=== PATIENT | female | born 1965 | race Caucasian/White ===

== ENCOUNTER 2016-07-23 20:45 | Emergency (ER) | payer OTHER ==
[2016-07-23 22:09] VITALS: BMI 37.5
--- NOTE | 2016-07-23 22:55 | PDOC ---
[id number] 4d LOWER LEFT BACK PAIN Time Seen by Provider: 07/23/16 22:48 History Source: Patient - History of Present Illness Initial Comments: 07/24/16 00:25 50 year old female with left sided back pain that is worse with movement, cough. denies fever.chills NVD, urinary symptoms. history depression, htn, Past History - Past Medical History Allergies/Adverse Reactions: Allergies Allergy/AdvReac Type Severity Reaction Status Date / Time No Known Allergies Allergy Verified 07/23/16 22:07 Home Medications: Ambulatory Orders Calcium Carbonate/Vitamin D3 [Calcium 600-Vit D3 200 Tablet] 1 each PO BID 07/18 Rivaroxaban [Xarelto -] 20 mg PO DAILY 12/12/14 Cyclobenzaprine HCl [Flexeril] 10 mg PO BID PRN 06/22/15 Duloxetine HCl [Cymbalta] 30 mg PO DAILY 06/22/15 Topiramate [Topamax] 50 mg PO BID 06/22/15 Venlafaxine HCl ER [Effexor Xr -] 150 mg PO DAILY 06/22/15 Mirtazapine 15 mg PO HS 11/18/15 Omeprazole [Prilosec] 40 mg PO DAILY 11/18/15 Simvastatin 10 mg PO HS 11/18/15 Sumatriptan 20 mg NS PRN 11/18/15 Diphenhydramine HCl [Benadryl Capsule -] 25 mg PO TID #30 capsule 04/08/16 Ondansetron [Zofran Odt -] 4 mg SL TID #30 od.tablet 04/08/16 Prednisone [Deltasone -] 40 mg PO DAILY #14 tablet 04/08/16 Diazepam [Valium] 5 mg PO Q8H PRN #6 tablet MDD 3 07/24/16 Hydrocortisone [Preparation H] 1 applic TP QID PRN #1 tube 07/26/16 Anemia: No Asthma: No Cancer: No Cardiac Disorders: No CVA: No COPD: No CHF: No (irregular hr) DVT: Yes Dementia: No Diabetes: No GI Disorders: No Disorders: Yes (incontinence) HTN: Yes Hypercholesterolemia: Yes Liver Disease: Yes (fatty liver) Psychiatric Problems: Yes (depression, anxiety) Suicide Attempt (Hx): No Seizures: No Thyroid Disease: No Lung CA: (sleep apnea) - Surgical History Abdominal Surgery: Yes Appendectomy: No Cardiac Surgery: No Cholecystectomy: Yes Lung Surgery: No Neurologic Surgery: No Orthopedic Surgery: Yes (left carpal tunnel) - Immunization History TDAP Vaccination: No Immunization Up to Date: Yes - Psycho/Social/Smoking Cessation Hx Anxiety: No Suicidal Ideation: No Smoking Status: Yes Smoking History: Never smoked Have you smoked in the past 12 months: No Number of Cigarettes Smoked Daily: 5 If you are a former smoker, when did you quit?: y Information on smoking cessation initiated: No 'Breaking Loose' booklet given: 09/18/15 Hx Alcohol Use: No Drug/Substance Use Hx: No Substance Use Type: None Hx Substance Use Treatment: No *Physical Exam - Vital Signs Last Vital Signs Temp Pulse Resp BP Pulse Ox 97.9 F 79 14 129/81 95 07/23/16 22:07 07/23/16 22:07 07/23/16 22:07 07/23/16 22:07 07/23/16 22:07 - Physical Exam General Appearance: Yes: Appropriately Dressed HEENT: positive: Normal ENT Inspection Respiratory/Chest: positive: Lungs Clear, Normal Breath Sounds, Other ( posterior chest tenderness to palpation) Cardiovascular: positive: Regular Rhythm, Regular Rate Gastrointestinal/Abdominal: positive: Normal Bowel Sounds, Soft Extremity: positive: Normal Capillary Refill Integumentary: positive: Normal Color, Dry, Warm Neurologic: positive: lap polisher II-XII NML intact, Fully Oriented, Alert, Normal Mood/ Affect ED Treatment Course - RADIOLOGY Chest X-Ray Result: No Infiltrates (official read pending) Medical Decision Making - Medical Decision Making 08/04/16 06:37 A: muscle spasms P: valium pain control pmd outpatient follow up. 08/04/16 06:38 *DC/Admit/Observation/Transfer Diagnosis at time of Disposition: Muscle spasm of back - Discharge Dispostion Disposition: HOME - Prescriptions Prescriptions: Diazepam [Valium] 5 mg PO Q8H PRN #6 tablet MDD 3 PRN Reason: Back Pain - Referrals Referrals: Catalina Alaniz [Primary Care Provider] - - Patient Instructions Printed Discharge Instructions: Muscle Strain Additional Instructions: continue light stretches as tolerated. take valium as needed for spasms. do not drive or operate heavy machinery while on the medication. follow up with your doctor as soon as possible.
[2016-07-24 00:28] LABS: URINE APPEARANCE CLEAR; URINE BILIRUBIN NEGATIVE (NEGATIVE); URINE BLOOD NEGATIVE (NEGATIVE); URINE COLOR YELLOW; URINE GLUCOSE (UA) NEGATIVE (NEGATIVE); URINE KETONE NEGATIVE (NEGATIVE); URINE LEUK ESTERASE NEGATIVE (NEGATIVE); URINE NITRITE NEGATIVE (NEGATIVE); URINE PROTEIN NEGATIVE (NEGATIVE); URINE UROBILINOGEN NEGATIVE E.U./dl (0.2-1.0)
[2016-07-24] MEDS ORDERED: diazePAM 5 MG TABLET ONE (01:39)
[2016-07-24] MEDS: diazePAM 5 MG TABLET PO ONE (01:41)
--- NOTE | 2016-07-24 01:46 | PDOC ---
*Physical Exam - Vital Signs Last Vital Signs Temp Pulse Resp BP Pulse Ox 97.9 F 79 14 129/81 95 07/23/16 22:07 07/23/16 22:07 07/23/16 22:07 07/23/16 22:07 07/23/16 22:07 ED Treatment Course - ADDITIONAL ORDERS Additional order review: Laboratory Results 07/24/16 07/24/16 00:15 00:15 Urine Color Yellow Urine Appearance Clear Urine pH 5.0 D Ur Specific [place] 1.028 Urine Protein Negative Urine Glucose (UA) Negative Urine Ketones Negative Urine Blood Negative Urine Nitrite Negative Urine Bilirubin Negative Urine Urobilinogen Negative Ur Leukocyte Esterase Negative Urine HCG, Qual Negative - Medications Given in the ED: ED Medications Discontinued Medications Generic Name Dose Route Start Last Admin Trade Name Jane PRN Reason Stop Dose Admin Diazepam 10 mg 07/24/16 01:01 07/24/16 01:41 Valium - PO 07/24/16 01:02 10 mg ONCE ONE Administration Medical Decision Making - Medical Decision Making 07/24/16 01:46 agree with care from GENE Baez *DC/Admit/Observation/Transfer Diagnosis at time of Disposition: Muscle spasm of back - Discharge Dispostion Disposition: HOME - Prescriptions Prescriptions: Diazepam [Valium] 5 mg PO Q8H PRN #6 tablet MDD 3 PRN Reason: Back Pain - Referrals Referrals: Catalina Alaniz [Primary Care Provider] - - Patient Instructions Printed Discharge Instructions: Muscle Strain Additional Instructions: continue light stretches as tolerated. take valium as needed for spasms. do not drive or operate heavy machinery while on the medication. follow up with your doctor as soon as possible.
[2016-07-24] MEDS ORDERED: KETOROLAC TROMETHAMINE 60 MG/2 ML VIAL ONE (03:30)
[2016-07-24] MEDS: KETOROLAC TROMETHAMINE 30 MG/1 ML VIAL IM ONE (03:38)
[2016-07-24 04:20] VITALS: BP 125/86; PULSE 61; TEMP 97.7
== END 2016-07-24 04:20 | disposition home or self-care (01) ==
LOC: JER 20:45
PROC: 3E0233Z Introduction of Anti-inflammatory into Muscle, Percutaneous Approach (ICD-10-PCS; principal; 2016-07-23)
DX: M62.830 Muscle spasm of back (principal); E78.00 Pure hypercholesterolemia, unspecified; F41.8 Other specified anxiety disorders; K76.0 Fatty (change of) liver, not elsewhere classified; G47.30 Sleep apnea, unspecified
CPT/HCPCS: 71020-TC; 81003; 84703; 99282-25

== ENCOUNTER 2016-07-26 15:01 | Emergency (ER) | payer OTHER ==
[2016-07-26 15:24] VITALS: BP 118/77; PULSE 94; TEMP 98.6; BMI 36.8
[2016-07-26] MEDS ORDERED: KETOROLAC TROMETHAMINE 60 MG/2 ML VIAL IM ONE (16:05)
[2016-07-26] MEDS ORDERED: KETOROLAC TROMETHAMINE 30 MG/1 ML VIAL IM ONE (16:06)
[2016-07-26] MEDS ORDERED: KETOROLAC TROMETHAMINE 30 MG/1 ML VIAL ONE (16:07)
--- NOTE | 2016-07-26 16:12 | PDOC ---
[id number] MUSCLE SPASM Time Seen by Provider: 07/26/16 15:38 - History of Present Illness Initial Comments: 07/26/16 16:07 CHIEF COMPLAINT: left lower back pain HISTORY OF PRESENT ILLNESS: 50 yo F with hx of depression, anxiety, HLD, sciatica, lower back muscle spasms, returns to fast track with left lower back pain. Patient states she was prescribed 6 pills of valium "which made me feel better, but I ran out." No recent travel or sick contacts. PAST MEDICAL HISTORY: Denies past medical history FAMILY HISTORY: Denies SOCIAL HISTORY:Denies tobacco, alcohol, illicit drug use. SURGICAL HISTORY: Denies ALLERGIES: No known drug allergies REVIEW OF SYSTEMS General/Constitutional: Denies fever or chills. Denies weakness, weight change. HEENT: Denies change in vision. Denies ear pain or discharge. Denies sore throat. Cardiovascular: Denies chest pain or shortness of breath. Respiratory: Denies cough, wheezing, or hemoptysis. Gastrointestinal: Denies nausea, vomiting, diarrhea or constipation. Denies rectal bleeding. Genitourinary: Denies dysuria, frequency, or change in urination. Musculoskeletal: Chronic back pain. PHYSICAL EXAM General Appearance: Well-appearing, appropriately dressed. No apparent distress , no intoxication. HEENT: EOMI, PERRLA, normal ENT inspection, normal voice, TMs normal, pharynx normal. No conjunctival pallor. No photophobia, scleral icterus. Respiratory/Chest: Lungs CTAB. Cardiovascular: RRR. S1, S2. Musculoskeletal/Extremities: Normal inspection. FROM of all extremities, normal capillary refill. Pelvis Stable. No CVA tenderness. No tenderness to extremities, pedal edema, swelling, erythema or deformity. Integumentary: Appropriate color, dry, warm. No cyanosis, erythema, jaundice or rash Neurologic: foot press operator II-XII intact. Fully oriented, alert. Appropriate mood/affect. Motor strength 5/5. No appreciable EOM palsy, facial droop or sensory deficit. 08/13/16 14:49 Past History - Past Medical History Allergies/Adverse Reactions: Allergies Allergy/AdvReac Type Severity Reaction Status Date / Time No Known Allergies Allergy Verified 07/26/16 15:24 Home Medications: Ambulatory Orders Naproxen [Naprosyn -] 500 mg PO BID PRN #14 tablet 08/12/16 Ondansetron [Zofran *Odt*] 8 mg SL TID PRN #6 od.tablet 08/12/16 Anemia: No Asthma: No Cancer: No Cardiac Disorders: No CVA: No COPD: No CHF: No (irregular hr) DVT: Yes Dementia: No Diabetes: No GI Disorders: No Disorders: Yes (incontinence) HTN: Yes (no meds) Hypercholesterolemia: Yes Liver Disease: Yes (fatty liver) Psychiatric Problems: Yes (depression, anxiety) Suicide Attempt (Hx): No Seizures: No Thyroid Disease: No Lung CA: (sleep apnea) - Surgical History Abdominal Surgery: Yes Appendectomy: No Cardiac Surgery: No Cholecystectomy: Yes Lung Surgery: No Neurologic Surgery: No Orthopedic Surgery: Yes (left carpal tunnel) - Immunization History TDAP Vaccination: No Immunization Up to Date: Yes - Psycho/Social/Smoking Cessation Hx Anxiety: Yes Suicidal Ideation: No Smoking Status: Yes Smoking History: Never smoked Have you smoked in the past 12 months: No Number of Cigarettes Smoked Daily: 5 If you are a former smoker, when did you quit?: y 'Breaking Loose' booklet given: 09/18/15 Hx Alcohol Use: No Drug/Substance Use Hx: No Substance Use Type: None Hx Substance Use Treatment: No Trauma Specific PMHX - Complaint Specific PMHX Back Injury: Yes (weight lifting injury years ago) *Physical Exam - Vital Signs Last Vital Signs Temp Pulse Resp BP Pulse Ox 98.6 F 94 H 20 118/77 98 07/26/16 15:19 07/26/16 15:19 07/26/16 15:19 07/26/16 15:19 07/26/16 15:19 Medical Decision Making - Medical Decision Making 07/26/16 16:12 50 yo F with hx of depression, anxiety, HLD, sciatica, lower back muscle spasms , returns to fast track with left lower back pain. [place] [employer] referenced: Rx Written Rx Dispensed Drug Quantity Days Supply Prescriber Name 07/24/2016 07/24/2016 diazepam 5 mg tablet 6 2 Adali Baez 07/13/2016 07/13/2016 morphine sulf er 30 mg tablet 60 30 Lorri Sanchez [employer]ARD[employer] HELPER Will not prescribe narcotics as patient was just rxed 60 tabs of morphine sulfate 13 days ago. -30 mg IM Toradol Advised patient to take medication as prescribed and follow up with pain management and orthopedics; patient states she has appointment to see ortho as she is awaiting knee replacement. Patient states she will follow up with pain management. *DC/Admit/Observation/Transfer Diagnosis at time of Disposition: Muscle spasm of back Hemorrhoid Qualifiers: Hemorrhoid type: second degree Qualified Code(s): K64.1 - Second degree hemorrhoids - Discharge Dispostion Disposition: HOME Condition at time of disposition: Stable Admit: No - Referrals Referrals: Catalina Alaniz [Primary Care Provider] - Lucian Mooney MD [Non Staff, Medical] - - Patient Instructions Printed Discharge Instructions: DI for Low Back Pain, DI for Back Spasm Additional Instructions: As discussed, you must follow up with orthopedics and/or pain management for further evaluation of your back pain. You may need a follow up MRI to evaluate your spine. If you experience any loss of sensation, numbness, or tingling to your legs; loss of bowel or bladder function; difficulty walking; fever, nausea , vomiting, diarrhea, or any new or worsening symptoms, please return to the ER.
== END 2016-07-26 16:55 | disposition home or self-care (01) ==
LOC: JERFT 15:01
PROC: 3E0333Z Introduction of Anti-inflammatory into Peripheral Vein, Percutaneous Approach (ICD-10-PCS; principal; 2016-07-26)
DX: M62.830 Muscle spasm of back (principal); K64.1 Second degree hemorrhoids; F32.9 Major depressive disorder, single episode, unspecified; F41.9 Anxiety disorder, unspecified; E78.5 Hyperlipidemia, unspecified; M54.30 Sciatica, unspecified side; K76.0 Fatty (change of) liver, not elsewhere classified; Z86.718 Personal history of other venous thrombosis and embolism
CPT/HCPCS: 99281-25

== ENCOUNTER 2016-08-12 10:51 | Emergency (ER) | payer OTHER ==
[2016-08-12 11:14] VITALS: BP 138/119; PULSE 100; TEMP 98; BMI 36.0
--- NOTE | 2016-08-12 11:40 | PDOC ---
[id number]: HEADACHES, NAUSEA Time Seen by Provider: 08/12/16 11:27 History Source: Patient Exam Limitations: No Limitations - History of Present Illness Initial Comments: 08/12/16 11:56 50 yr female history of migraines, anxiety, depression, DVT, presents wtih 3 days headache and photophobia with nausea no vomiting. Pt states topamax does not help her so she did not take any. no fever no chills. Past History - Past Medical History Allergies/Adverse Reactions: Allergies Allergy/AdvReac Type Severity Reaction Status Date / Time No Known Allergies Allergy Verified 08/12/16 11:12 Home Medications: Ambulatory Orders Naproxen [Naprosyn -] 500 mg PO BID PRN #14 tablet 08/12/16 Ondansetron [Zofran *Odt*] 8 mg SL TID PRN #6 od.tablet 08/12/16 Anemia: No Asthma: No Cancer: No Cardiac Disorders: No CVA: No COPD: No CHF: No (irregular hr) DVT: Yes Dementia: No Diabetes: No GI Disorders: No Disorders: Yes (incontinence) HTN: Yes (no meds) Hypercholesterolemia: Yes Liver Disease: Yes (fatty liver) Psychiatric Problems: Yes (depression, anxiety) Suicide Attempt (Hx): No Seizures: No Thyroid Disease: No Lung CA: (sleep apnea) Other medical history: MIGRANES - Surgical History Abdominal Surgery: Yes Appendectomy: No Cardiac Surgery: No Cholecystectomy: Yes Lung Surgery: No Neurologic Surgery: No Orthopedic Surgery: Yes (left carpal tunnel) - Immunization History TDAP Vaccination: No Immunization Up to Date: Yes - Psycho/Social/Smoking Cessation Hx Anxiety: Yes Suicidal Ideation: No Smoking Status: Yes Smoking History: Current every day smoker Have you smoked in the past 12 months: Yes Number of Cigarettes Smoked Daily: 3 If you are a former smoker, when did you quit?: y Information on smoking cessation initiated: No 'Breaking Loose' booklet given: 09/18/15 Hx Alcohol Use: No Drug/Substance Use Hx: No Substance Use Type: None Hx Substance Use Treatment: No Neuro Specific PMHX - Complaint Specific PMHX Migraine: Yes *Physical Exam - Vital Signs Last Vital Signs Temp Pulse Resp BP Pulse Ox 98 F 100 H 19 138/119 98 08/12/16 11:12 08/12/16 11:12 08/12/16 11:12 08/12/16 11:12 08/12/16 11:12 - Physical Exam General Appearance: Yes: Nourished, Appropriately Dressed HEENT: positive: EOMI, EVEL[place], Normal ENT Inspection, TMs Normal, Pharynx Normal Neck: positive: Supple. negative: Tender Respiratory/Chest: positive: Lungs Clear, Normal Breath Sounds Cardiovascular: positive: Regular Rhythm, Regular Rate Gastrointestinal/Abdominal: positive: Normal Bowel Sounds, Soft Musculoskeletal: positive: Normal Inspection Extremity: positive: Normal Capillary Refill, Normal Inspection, Normal Range of Motion Integumentary: positive: Normal Color, Dry, Warm Neurologic: positive: Fully Oriented, Alert, Normal Mood/Affect, Normal Response , Motor Strength 5/5, Other (no dizzyness no vision changes) Progress Note - Progress Note Progress Note: pt improved after sleeping about 1 hr in ER pt states she feels better ad is ready to go home. Medical Decision Making - Medical Decision Making 08/12/16 12:40 cc: nausea headache photophobia, no acute distress history of migraines states this is typical migraine no fever no head trauma will give zofran, toradol pt has history of opioid overdose (EMR checked) strict follow up with neurology 08/12/16 13:16 BP 140/87 left arm *DC/Admit/Observation/Transfer Diagnosis at time of Disposition: Migraine Qualifiers: Migraine type: unspecified Status migrainosus presence: without status migrainosus Intractability: intractable Qualified Code(s): G43.919 - Migraine, unspecified, intractable, without status migrainosus - Discharge Dispostion Disposition: HOME Condition at time of disposition: Good - Prescriptions Prescriptions: Naproxen [Naprosyn -] 500 mg PO BID PRN #14 tablet PRN Reason: Headache Ondansetron [Zofran *Odt*] 8 mg SL TID PRN #6 od.tablet PRN Reason: Nausea And/Or Vomiting - Referrals Referrals: Mohit Robertson MD [Staff Physician] - - Patient Instructions Additional Instructions: follow with the neurologist for follow up take naproysn every 12hrs for headache , take at the early sign of headache you can also take Excedrin Migraine as directed drink at least 2 liters of water return if any worsening symptoms
[2016-08-12] MEDS ORDERED: ONDANSETRON *ODT* 4 MG TABLET SL ONE (11:55)
[2016-08-12] MEDS ORDERED: ONDANSETRON *ODT* 4 MG TABLET ONE (11:59)
[2016-08-12] MEDS ORDERED: KETOROLAC TROMETHAMINE 60 MG/2 ML VIAL IM ONE (12:27)
[2016-08-12] MEDS ORDERED: KETOROLAC TROMETHAMINE 60 MG/2 ML VIAL ONE (12:46)
== END 2016-08-12 14:05 | disposition home or self-care (01) ==
LOC: JERFT 10:51
PROC: 3E0233Z Introduction of Anti-inflammatory into Muscle, Percutaneous Approach (ICD-10-PCS; principal; 2016-08-12)
DX: G43.919 Migraine, unspecified, intractable, without status migrainosus (principal); F41.8 Other specified anxiety disorders; Z86.718 Personal history of other venous thrombosis and embolism; I10 Essential (primary) hypertension; E78.00 Pure hypercholesterolemia, unspecified; F17.210 Nicotine dependence, cigarettes, uncomplicated; K76.0 Fatty (change of) liver, not elsewhere classified
CPT/HCPCS: 84703; 96372; 99281-25

== ENCOUNTER → 2016-08-24 | Emergency (ER) | payer OTHER ==
[~2016-08-24] MED LIST: ACETAMINOPHEN/CAFFEINE/BUTALBITAL 1 TAB ONE; ACETAMINOPHEN/CAFFEINE/BUTALBITAL 1 TAB PO ONE; IBUPROFEN 400 MG TABLET (FP) PO ONE; METOCLOPRAMIDE HCL 10 MG TABLET (FP) PO ONE; diphenhydrAMINE HCL 25 MG CAPSULE (FP) PO ONE; predniSONE 20 MG TABLET (UD) ONE
[2016-08-24 22:32] VITALS: BMI 36.0
--- NOTE | 2016-08-25 01:26 | PDOC ---
History of Present Illness - General History Source: Patient Exam Limitations: No Limitations - History of Present Illness Initial Comments: 08/25/16 01:31 The patient is a 50 year old female with significant past medical history of hypertension, hyperlipidemia, DARRON, anemia, recurrent DVT's (on Xarelto), opiate overdose, depression, bipolar disorder, and multiple suicide attempts who presents to the ED for 3 days of migraine. Patient describes her migraine as a throbbing and pounding sensation and 9/10 with associated bilateral eye pain, photophobia, and nausea. Denies dizziness or vomiting. States taking imitrex 25 mg 2 days ago and yesterday with no improvement and as well as excedrin with no improvement. The patient denies fever, chills, cough, SOB, chest pain, abdominal pain, and diarrhea. Allergies: NKDA Social History: 1/2 PPD. Denies alcohol or drug use. Family History: Father has DM. Colon and pancreatic cancer on her father's side Past Surgical History: Cholecystectomy, left carpal tunnel repair PCP: Dr. Vanda Alaniz <Lauren Lozada - Last Filed: 08/25/16 01:31> - General History Source: Patient <Ambrose Rutledge - Last Filed: 08/25/16 06:09> - General Chief Complaint: Migraine Headache Stated Complaint: HEADACHE Time Seen by Provider: 08/25/16 01:09 Past History <Lauren Lozada - Last Filed: 08/25/16 01:31> - Past Medical History Anemia: No Asthma: No Cancer: No Cardiac Disorders: No CVA: No COPD: No CHF: No (irregular hr) DVT: Yes Dementia: No Diabetes: No GI Disorders: No Disorders: Yes (incontinence) HTN: Yes (no meds) Hypercholesterolemia: Yes Liver Disease: Yes (fatty liver) Psychiatric Problems: Yes (depression, anxiety) Suicide Attempt (Hx): No Seizures: No Thyroid Disease: No Lung CA: (sleep apnea) - Surgical History Abdominal Surgery: Yes Appendectomy: No Cardiac Surgery: No Cholecystectomy: Yes Lung Surgery: No Neurologic Surgery: No Orthopedic Surgery: Yes (left carpal tunnel) - Immunization History TDAP Vaccination: No Immunization Up to Date: Yes - Psycho/Social/Smoking Cessation Hx Anxiety: Yes Suicidal Ideation: No Smoking Status: Yes Smoking History: Current some day smoker Have you smoked in the past 12 months: Yes Number of Cigarettes Smoked Daily: 3 If you are a former smoker, when did you quit?: y Information on smoking cessation initiated: No 'Breaking Loose' booklet given: 09/18/15 Hx Alcohol Use: No Drug/Substance Use Hx: No Substance Use Type: None Hx Substance Use Treatment: No <Ambrose Rutledge - Last Filed: 08/25/16 06:09> - Past Medical History Allergies/Adverse Reactions: Allergies Allergy/AdvReac Type Severity Reaction Status Date / Time No Known Allergies Allergy Verified 08/12/16 11:12 Home Medications: Ambulatory Orders Sumatriptan Succinate [Imitrex] 25 mg PO BID PRN 08/24/16 Acetaminophen/Caffeine/Butalb [Fioricet -] 1 tab PO Q6H #28 tablet MDD 4 Ibuprofen 800 mg PO TID #30 tablet 08/25/16 Metoclopramide HCl [Reglan -] 10 mg PO TID #30 tablet 08/25/16 Review of Systems - Review of Systems Able to Perform ROS?: Yes Comments:: 08/25/16 01:31 CONSTITUTIONAL: Absent: fever, no chills, no fatigue EYES: +bilateral eye pain Absent: visual changes ENT: Absent: ear pain, no sore throat CARDIOVASCULAR: Absent: chest pain, no palpitations RESPIRATORY: Absent: cough, no SOB GI: +nausea Absent: abdominal pain, no vomiting, no constipation, no diarrhea GENITOURINARY: Absent: dysuria, no frequency, no hematuria MUSCULOSKELETAL: Absent: back pain, no arthralgia, no myalgia SKIN: Absent: rash NEURO: +migraine headache, photophobia <Lauren Lozada - Last Filed: 08/25/16 01:31> *Physical Exam - Vital Signs Last Vital Signs Temp Pulse Resp BP Pulse Ox 98.5 F 83 18 154/107 98 08/24/16 22:29 08/24/16 22:29 08/24/16 22:29 08/24/16 22:29 08/24/16 22:29 - Physical Exam Comments: 08/25/16 01:31 GENERAL: Well-appearing, well-nourished. No apparent distress. HEENT: Normocephalic, atraumatic. PERRL, EOM intact. CARDIOVASCULAR: Normal S1, S2. Regular rate and rhythm. PULMONARY: Clear to auscultation bilaterally. ABDOMEN: Soft, non-distended, non-tender. EXTREMITIES: Normal ROM in all four extremities. No gross deformities. SKIN: Warm, dry. No rash NEUROLOGICAL: No focal neurological deficits. <Lauren Lozada - Last Filed: 08/25/16 01:31> - Vital Signs Last Vital Signs Temp Pulse Resp BP Pulse Ox 98.5 F 83 18 154/107 98 08/24/16 22:29 08/24/16 22:29 08/24/16 22:29 08/24/16 22:29 08/24/16 22:29 <Ambrose Rutledge - Last Filed: 08/25/16 06:09> Medical Decision Making - Medical Decision Making 08/25/16 06:08 Dr. Rutledge: The scribe's documentation has been prepared under my direction and personally reviewed by me in its entirery. I confirm that the note above accurately reflects all work, treatment, procedures, and medical decision making performed by me. Pt headache has improved with treatment in the department. Neurologically intact. Pt to be discharged <Ambrose Rutledge - Last Filed: 08/25/16 06:09> *DC/Admit/Observation/Transfer - Attestations Scribe Attestion: 08/25/16 01:31 Documentation prepared by Lauren Lozada, acting as pediatrician/medical doctor for Ambrose Rutledge MD/. <Lauren Lozada - Last Filed: 08/25/16 01:31> - Discharge Dispostion Admit: No <Ambrose Rutledge - Last Filed: 08/25/16 06:09> Diagnosis at time of Disposition: Migraine Qualifiers: Migraine type: unspecified Status migrainosus presence: without status migrainosus Intractability: not intractable Qualified Code(s): G43.909 - Migraine, unspecified, not intractable, without status migrainosus - Discharge Dispostion Disposition: HOME Condition at time of disposition: Improved - Referrals Referrals: Dar Arana [Primary Care Provider] - Antelmo Wade MD [Staff Physician] - - Patient Instructions Printed Discharge Instructions: DI for Migraine
[2016-08-25 06:40] VITALS: BP 153/100; PULSE 62; TEMP 98.3
== END | disposition home or self-care (01) ==
LOC: JER 22:22
DX: G43.909 Migraine, unspecified, not intractable, without status migrainosus (principal); I10 Essential (primary) hypertension; E78.5 Hyperlipidemia, unspecified; D64.9 Anemia, unspecified; G47.33 Obstructive sleep apnea (adult) (pediatric); F17.210 Nicotine dependence, cigarettes, uncomplicated; F31.9 Bipolar disorder, unspecified; Z86.718 Personal history of other venous thrombosis and embolism; Z79.01 Long term (current) use of anticoagulants
CPT/HCPCS: 99281-25

== ENCOUNTER 2016-09-06 17:19 | Emergency (ER) | payer OTHER ==
[2016-09-06] MEDS ORDERED: diphenhydrAMINE HCL 25 MG CAPSULE (FP) PO ONE (17:45)
[2016-09-06] MEDS ORDERED: predniSONE 20 MG TABLET (UD) PO ONE (17:45)
--- NOTE | 2016-09-06 17:56 | PDOC ---
History of Present Illness - General Chief Complaint: Allergic Reaction Stated Complaint: ITCHING ALL OVER Time Seen by Provider: 09/06/16 17:34 History Source: Patient Exam Limitations: No Limitations - History of Present Illness Initial Comments: 09/06/16 17:45 Patient is a 50-year-old female with history of hypertension, left lower extremity DVT, patient reports that she was taking a shower after taking the shower developed generalized pruritus with no rash denies any new lotion soaps or detergents. Allergies: No known allergies Medications: Chlorozoxazone, cymbalta, effexor, omeprazol, simvistatin, topamax. Family History: Non-contributory Social History: Denies smoking, alcohol use, or IVDU Review of Systems GENERAL/CONSTITUTIONAL: No fever or chills. No weakness. No weight change. HEAD, EYES, EARS, NOSE AND THROAT: No change in vision. No ear pain or discharge. No sore throat. CARDIOVASCULAR: No chest pain or shortness of breath. RESPIRATORY: No cough, wheezing, or hemoptysis. GASTROINTESTINAL: No nausea, vomiting, diarrhea or constipation. No rectal bleeding. GENITOURINARY: No dysuria, frequency, or change in urination. MUSCULOSKELETAL: No joint or muscle swelling or pain. No neck or back pain. SKIN : No rash or easy bruising. Generalized pruritis. NEUROLOGIC: No headache, vertigo, loss of consciousness, or loss of sensation. PSYCHIATRIC: No depression or anxiety. ENDOCRINE: No increased thirst. No abnormal weight change. HEMATOLOGIC/LYMPHATIC: No anemia, easy bleeding, or history of blood clots. ALLERGIC/IMMUNOLOGIC: No hives or skin allergy. No latex allergy. Physical Exam: GENERAL: The patient is awake, alert, and fully oriented, in no acute distress. HEAD: Normal with no signs of trauma. EYES: Pupils equal, round and reactive to light, extraocular movements intact, sclera anicteric, conjunctiva clear. ENT: Ears normal, nares patent, oropharynx clear without exudates. Moist mucous membranes. No uvula deviation NECK: Normal range of motion, supple without lymphadenopathy, JVD, or masses. LUNGS: Breath sounds equal, clear to auscultation bilaterally. No wheezes, and no crackles. HEART: Regular rate and rhythm, normal S1 and S2 without murmur, rub or gallop. ABDOMEN: Soft, nontender, normoactive bowel sounds. No guarding, no rebound. No masses. No bruising or abrasions MUSCULOSKELETAL: Normal range of motion, no edema. No clubbing or cyanosis. No cords, erythema, or tenderness. No CVA Tenderness with fist palpation. NEUROLOGICAL: Cranial nerves II through XII grossly intact. Normal speech, normal gait. PSYCH: Normal mood, normal affect. SKIN: Warm, Dry, normal turgor, no rashes or lesions noted. 09/06/16 19:30 Past History - Past Medical History Allergies/Adverse Reactions: Allergies Allergy/AdvReac Type Severity Reaction Status Date / Time No Known Allergies Allergy Verified 09/06/16 17:23 Home Medications: Ambulatory Orders Chlorzoxazone 500 mg PO BID 09/06/16 Diphenhydramine [Benadryl -] 50 mg PO TID #15 capsule 09/06/16 Duloxetine HCl [Cymbalta] 20 mg PO DAILY 09/06/16 Morphine Sulfate [Morphine Sulfate ER] 30 mg PO BID 09/06/16 Omeprazole 40 mg PO DAILY 09/06/16 Prednisone [Deltasone -] 20 mg PO BID #6 tablet 09/06/16 Simvastatin 20 mg PO HS 09/06/16 Topiramate [Topamax] 100 mg PO BID 09/06/16 Venlafaxine HCl ER [Effexor Xr -] 75 mg PO DAILY 09/06/16 Anemia: No Asthma: No Cancer: No Cardiac Disorders: No CVA: No COPD: No CHF: No (irregular hr) DVT: Yes Dementia: No Diabetes: No GI Disorders: No Disorders: Yes (incontinence) HTN: Yes (no meds) Hypercholesterolemia: Yes Liver Disease: Yes (fatty liver) Psychiatric Problems: Yes (depression, anxiety) Suicide Attempt (Hx): No Seizures: No Thyroid Disease: No Lung CA: (sleep apnea) - Surgical History Abdominal Surgery: Yes Appendectomy: No Cardiac Surgery: No Cholecystectomy: Yes Lung Surgery: No Neurologic Surgery: No Orthopedic Surgery: Yes (left carpal tunnel) - Immunization History TDAP Vaccination: No Immunization Up to Date: Yes - Psycho/Social/Smoking Cessation Hx Anxiety: Yes Suicidal Ideation: No Smoking Status: Yes Smoking History: Never smoked Have you smoked in the past 12 months: Yes Number of Cigarettes Smoked Daily: 6 If you are a former smoker, when did you quit?: y Information on smoking cessation initiated: Yes 'Breaking Loose' booklet given: 09/18/15 Hx Alcohol Use: No Drug/Substance Use Hx: No Substance Use Type: None Hx Substance Use Treatment: No *Physical Exam - Vital Signs Last Vital Signs Temp Pulse Resp BP Pulse Ox 97.5 F L 112 H 18 125/98 100 09/06/16 17:24 09/06/16 17:24 09/06/16 17:24 09/06/16 17:24 09/06/16 17:24 ED Treatment Course - LABORATORY CBC & Chemistry Diagram: 09/06/16 18:00 Medical Decision Making - Medical Decision Making 09/06/16 17:56 A/P: Patient with generalized pruritus there is no rash no wheals, patient denies any new lotion soaps or detergents. patient denies any liver disease. Patient on multiple medications will evaluate LFTs rule out as cause for pruritus Prednisone 60 mg by mouth 1, Benadryl 50 mg by mouth and will order Zantac 09/06/16 19:08 LFT's within normal limits, will DC patient home on Benadryl and prednisone 20 mg. Continue taking omeprazole. Patient denies any pruritus I discussed the physical exam findings, ancillary test results and final diagnoses with the patient. I answered all of the patient's questions. The patient was satisfied with the care received and felt comfortable with the discharge plan and treatment plan. The patient will call to arrange follow-up and will return to the Emergency Department with any new, persistent or worsening symptoms. 09/06/16 19:31 *DC/Admit/Observation/Transfer Diagnosis at time of Disposition: Pruritic condition - Discharge Dispostion Disposition: HOME Condition at time of disposition: Stable Admit: No - Prescriptions Prescriptions: Diphenhydramine [Benadryl -] 50 mg PO TID #15 capsule Prednisone [Deltasone -] 20 mg PO BID #6 tablet - Patient Instructions Additional Instructions: No new lotion soaps or detergents. Please make sure to take Benadryl for the next 3 days, prednisone as ordered
[2016-09-06] MEDS ORDERED: RANITIDINE HCL 150 MG TABLET (FP) PO ONE (18:00)
[2016-09-06 18:05] VITALS: BP 125/98; PULSE 112; TEMP 97.5; BMI 36.0
[2016-09-06 18:59] LABS: ALBUMIN 4.2 g/dl (3.4-5.0); CALCIUM 10.1 mg/dL (8.5-10.1)
[2016-09-06 19:01] LABS: BILIRUBIN,TOTAL 0.5 mg/dL (0.2-1.0); TOT PROT 7.9 g/dl (6.4-8.2)
== END 2016-09-06 19:23 | disposition home or self-care (01) ==
LOC: JER 17:19
DX: L29.9 Pruritus, unspecified (principal); I10 Essential (primary) hypertension; E78.00 Pure hypercholesterolemia, unspecified; F41.8 Other specified anxiety disorders
CPT/HCPCS: 36415; 80053; 99281-25

== ENCOUNTER 2017-01-14 17:33 | Emergency (ER) | payer OTHER ==
[2017-01-14 17:37] VITALS: BP 140/97; PULSE 99; TEMP 98.2; BMI 39.1
[2017-01-14] MEDS ORDERED: KETOROLAC TROMETHAMINE 60 MG/2 ML VIAL IM ONE (19:03)
--- NOTE | 2017-01-14 19:05 | PDOC ---
History of Present Illness - General Chief Complaint: Back Pain Stated Complaint: BACK PAIN Time Seen by Provider: 01/14/17 18:46 - History of Present Illness Initial Comments: 01/14/17 18:59 CHIEF COMPLAINT: back pain HISTORY OF PRESENT ILLNESS: 51 yo F with hx of depression, anxiety, HLD, sciatica, lower back muscle spasms presents to fast track with pain to lower back radiating down R leg. Patient denies any recent injury or trauma and states "I just woke up with pain and felt like I couldn't get up without pain." No recent travel or sick contacts. PAST MEDICAL HISTORY: Denies past medical history FAMILY HISTORY: Denies SOCIAL HISTORY: Denies tobacco, alcohol, illicit drug use. SURGICAL HISTORY: knee replacement ALLERGIES: No known drug allergies REVIEW OF SYSTEMS General/Constitutional: Denies weakness. Cardiovascular: Denies chest pain or shortness of breath. Genitourinary: No loss of bowel or bladder function. Musculoskeletal: Back pain radiating down R leg. Denies joint or muscle swelling or pain. Neurologic: Denies loss of sensation to lower extremities. PHYSICAL EXAM General Appearance: Well-appearing, appropriately dressed. No apparent distress , no intoxication. HEENT: EOMI, PERRLA, normal ENT inspection, normal voice, TMs normal, pharynx normal. No conjunctival pallor. No photophobia, scleral icterus. Neck: Supple. Trachea midline. No tenderness, rigidity, carotid bruit, stridor , lymphadenopathy, or thyromegaly. Respiratory/Chest: Lungs CTAB. No shortness of breath, chest tenderness, respiratory distress, accessory muscle use. No crackles, rales, rhonchi, stridor , wheezing, dullness Cardiovascular: RRR. S1, S2. Musculoskeletal/Extremities: Midline tenderness to lumbar spine at L4-L5. No saddle anesthesia, sensory discrimination intact. Normal inspection. FROM of all extremities, normal capillary refill. Pelvis Stable. No CVA tenderness. No tenderness to extremities, pedal edema, swelling, erythema or deformity. Integumentary: Appropriate color, dry, warm. No cyanosis, erythema, jaundice or rash Neurologic: edger automatic II-XII intact. Fully oriented, alert. Appropriate mood/affect. Motor strength 5/5. No appreciable EOM palsy, facial droop or sensory deficit. 01/14/17 19:03 Past History - Past Medical History Allergies/Adverse Reactions: Allergies Allergy/AdvReac Type Severity Reaction Status Date / Time No Known Allergies Allergy Verified 01/14/17 17:37 Home Medications: Ambulatory Orders Chlorzoxazone 500 mg PO BID 09/06/16 Diphenhydramine [Benadryl -] 50 mg PO TID #15 capsule 09/06/16 Duloxetine HCl [Cymbalta] 20 mg PO DAILY 09/06/16 Morphine Sulfate [Morphine Sulfate ER] 30 mg PO BID 09/06/16 Omeprazole 40 mg PO DAILY 09/06/16 Prednisone [Deltasone -] 20 mg PO BID #6 tablet 09/06/16 Simvastatin 20 mg PO HS 09/06/16 Topiramate [Topamax] 100 mg PO BID 09/06/16 Venlafaxine HCl ER [Effexor Xr -] 75 mg PO DAILY 09/06/16 Cyclobenzaprine HCl 7.5 mg PO HS PRN #5 tablet 01/14/17 Naproxen 250 mg PO BID #14 tablet 01/14/17 Anemia: No Asthma: No Cancer: No Cardiac Disorders: No CVA: No COPD: No CHF: No (irregular hr) DVT: Yes Dementia: No Diabetes: No GI Disorders: No Disorders: Yes (incontinence) HTN: Yes (no meds) Hypercholesterolemia: Yes Liver Disease: Yes (fatty liver) Psychiatric Problems: Yes (depression, anxiety) Seizures: No Thyroid Disease: No Lung CA: (sleep apnea) - Surgical History Abdominal Surgery: Yes Appendectomy: No Cardiac Surgery: No Cholecystectomy: Yes Lung Surgery: No Neurologic Surgery: No Orthopedic Surgery: Yes (left carpal tunnel) - Immunization History TDAP Vaccination: No Immunization Up to Date: Yes - Suicide/Smoking/Psychosocial Hx Smoking Status: Yes Smoking History: Current every day smoker Have you smoked in the past 12 months: Yes Number of Cigarettes Smoked Daily: 5 If you are a former smoker, when did you quit?: y Information on smoking cessation initiated: Yes 'Breaking Loose' booklet given: 01/14/17 Hx Alcohol Use: No Drug/Substance Use Hx: No Substance Use Type: None Hx Substance Use Treatment: No Trauma Specific PMHX - Complaint Specific PMHX Back Injury: Yes (weight lifting injury years ago) *Physical Exam - Vital Signs Last Vital Signs Temp Pulse Resp BP Pulse Ox 98.2 F 99 H 19 140/97 99 01/14/17 17:35 01/14/17 17:35 01/14/17 17:35 01/14/17 17:35 01/14/17 17:35 Medical Decision Making - Medical Decision Making 01/14/17 19:03 51 yo F with hx of depression, anxiety, HLD, sciatica, lower back muscle spasms presents to fast track with pain to lower back radiating down R leg. Patient denies any change of , states she has not had a period for >2 years. -Toradol IM naproxen, cyclobenzparine sent to pharm Advised patient to take medications as prescribed and f/u with orthopedist for further evaluation of chronic back pain; patient verbalized understanding and agrees to plan. *DC/Admit/Observation/Transfer Diagnosis at time of Disposition: Lower back pain Qualifiers: Chronicity: acute Back pain laterality: right Sciatica presence: with sciatica Sciatica laterality: sciatica of right side Qualified Code(s): M54.41 - Lumbago with sciatica, right side; M54.41 - Lumbago with sciatica, right side - Discharge Dispostion Disposition: HOME Condition at time of disposition: Stable Admit: No - Prescriptions Prescriptions: Cyclobenzaprine HCl 7.5 mg PO HS PRN #5 tablet PRN Reason: Back Pain Naproxen 250 mg PO BID #14 tablet - Patient Instructions Printed Discharge Instructions: DI for Low Back Pain Additional Instructions: Please take medications as prescribed; do NOT drive, drink alcohol, or operate machinery while taking cyclobenzaprine. As discussed, please follow up with your orthopedic doctor within the next 3-5 days for possible MRI and/or physical therapy for your chronic back pain. If you develop ANY loss of sensation to your legs, any loss of bowel or bladder function, or any new or worsening symptoms, please return to the ER.
[2017-01-14] MEDS ORDERED: KETOROLAC TROMETHAMINE 60 MG/2 ML VIAL ONE (19:07)
== END 2017-01-14 19:11 | disposition home or self-care (01) ==
LOC: JERFT 17:33
PROC: 3E0233Z Introduction of Anti-inflammatory into Muscle, Percutaneous Approach (ICD-10-PCS; principal; 2017-01-14)
DX: M54.41 Lumbago with sciatica, right side (principal); E78.5 Hyperlipidemia, unspecified; F41.8 Other specified anxiety disorders
CPT/HCPCS: 96372; 99281-25

== ENCOUNTER → 2017-04-05 | Emergency (ER) | payer OTHER ==
[~2017-04-05] MED LIST changes: +ACETAMINOPHEN 1000 MG/100 ML VIAL (NON FORMULARY) IVPB ONE; +ACETAMINOPHEN INJECTION 100 ML IVPB ONE; -ACETAMINOPHEN/CAFFEINE/BUTALBITAL 1 TAB ONE; -ACETAMINOPHEN/CAFFEINE/BUTALBITAL 1 TAB PO ONE; -IBUPROFEN 400 MG TABLET (FP) PO ONE; -METOCLOPRAMIDE HCL 10 MG TABLET (FP) PO ONE; +SODIUM CHLORIDE 0.9% 1000 ML INFUS.BAG IV ONE; -diphenhydrAMINE HCL 25 MG CAPSULE (FP) PO ONE; -predniSONE 20 MG TABLET (UD) ONE
[2017-04-05 22:29] VITALS: BMI 40.7
--- NOTE | 2017-04-06 00:51 | PDOC ---
History of Present Illness - General Chief Complaint: Back Pain Stated Complaint: BACK PAIN Time Seen by Provider: 04/06/17 00:27 Past History - Past Medical History Allergies/Adverse Reactions: Allergies Allergy/AdvReac Type Severity Reaction Status Date / Time No Known Allergies Allergy Verified 01/14/17 17:37 Home Medications: Ambulatory Orders Chlorzoxazone 500 mg PO BID 09/06/16 Diphenhydramine [Benadryl -] 50 mg PO TID #15 capsule 09/06/16 Duloxetine HCl [Cymbalta] 20 mg PO DAILY 09/06/16 Morphine Sulfate [Morphine Sulfate ER] 30 mg PO BID 09/06/16 Omeprazole 40 mg PO DAILY 09/06/16 Prednisone [Deltasone -] 20 mg PO BID #6 tablet 09/06/16 Simvastatin 20 mg PO HS 09/06/16 Topiramate [Topamax] 100 mg PO BID 09/06/16 Venlafaxine HCl ER [Effexor Xr -] 75 mg PO DAILY 09/06/16 Cyclobenzaprine HCl 7.5 mg PO HS PRN #5 tablet 01/14/17 Naproxen 250 mg PO BID #14 tablet 01/14/17 Anemia: No Asthma: No Cancer: No Cardiac Disorders: No CVA: No COPD: No CHF: No (irregular hr) DVT: Yes Dementia: No Diabetes: No GI Disorders: No Disorders: Yes (incontinence) HTN: Yes (no meds) Hypercholesterolemia: Yes Liver Disease: Yes (fatty liver) Psychiatric Problems: Yes (depression, anxiety) Seizures: No Thyroid Disease: No Lung CA: (sleep apnea) - Surgical History Abdominal Surgery: Yes Appendectomy: No Cardiac Surgery: No Cholecystectomy: Yes Lung Surgery: No Neurologic Surgery: No Orthopedic Surgery: Yes (left carpal tunnel) - Immunization History TDAP Vaccination: No Immunization Up to Date: Yes - Suicide/Smoking/Psychosocial Hx Smoking Status: Yes Smoking History: Current every day smoker Have you smoked in the past 12 months: Yes Number of Cigarettes Smoked Daily: 6 If you are a former smoker, when did you quit?: y Information on smoking cessation initiated: No 'Breaking Loose' booklet given: 01/14/17 Hx Alcohol Use: No Drug/Substance Use Hx: No Substance Use Type: None Hx Substance Use Treatment: No *Physical Exam - Vital Signs Last Vital Signs Temp Pulse Resp BP Pulse Ox 99.5 F 79 18 158/104 99 04/05/17 22:27 04/05/17 22:27 04/05/17 22:27 04/05/17 22:27 04/05/17 22:27 Medical Decision Making - Medical Decision Making 04/06/17 01:38 51-year-old female presents with right rhomboid pain since this afternoon. Initial blood pressure elevated to 150s over 100, will repeat. Exam with tenderness to palpation over the right rhomboid area that is made worse with ranging right upper extremity. Patient also describes the pain as a spasm. Pain is likely musculoskeletal however will obtain a troponin to evaluate for ACS and a d-dimer is pain is pleuritic. Will provide pain medication in the meantime.
[2017-04-06 02:30] LABS: BASO % 0.5 % (0-2.0); EOS # 0.2 # (0-4.5); EOS % 2.2 % (0-4.5); LYMPH # 2.8 (8-40); MCH 26.8 pg (25.7-33.7); MCHC 32.8 g/dl (32.0-36.0); MEAN CELL VOLUME 81.7 fl (80-96); MEAN PLT VOLUME 8.4 fl (7.5-11.1); MONO # 0.6 # (3.8-10.2); NEUT # 5.3 # (42.8-82.8); NEUT % 58.5 % (42.8-82.8); PLATELET COUNT 288 K/MM3 (134-434); RDW 16.3 % (11.6-15.6)
[2017-04-06 02:56] LABS: ALBUMIN 3.5 g/dl (3.4-5.0); ALK PHOS 75 U/L (45-117); ANION GAP 10 (8-16); BILIRUBIN,TOTAL 0.2 mg/dL (0.2-1.0); CALCIUM 8.8 mg/dL (8.5-10.1); CO2 26 mmol/L (21-32); CREATININE 1.1 mg/dL (0.55-1.02); GLUCOSE,RANDOM 95 mg/dL (74-106); SGOT/AST 16 U/L (15-37); SGPT/ALT 30 U/L (12-78); TROPONIN I < 0.02 ng/ml (0.00-0.05)
--- NOTE | 2017-04-06 06:47 | PDOC ---
*Physical Exam - Vital Signs Last Vital Signs Temp Pulse Resp BP Pulse Ox 99.5 F 79 18 158/104 99 04/05/17 22:27 04/05/17 22:27 04/05/17 22:27 04/05/17 22:27 04/05/17 22:27 ED Treatment Course - LABORATORY CBC & Chemistry Diagram: 04/06/17 02:17 04/06/17 02:17 - Medications Given in the ED: ED Medications Discontinued Medications Generic Name Dose Route Start Last Admin Trade Name Jane PRN Reason Stop Dose Admin Acetaminophen 1,000 mg 04/06/17 01:21 04/06/17 02:26 Ofirmev Injection - IVPB 04/06/17 01:22 1,000 mg ONCE ONE Administration Sodium Chloride 500 ml 04/06/17 03:18 04/06/17 03:20 Normal Saline - IV 04/06/17 03:19 500 ml ONCE ONE Administration Medical Decision Making - Medical Decision Making 04/06/17 06:30 Care assumed at 3am. 51 F with upper back pain, found to have positive Ddimer. CTA chest completely normal on prelim read. Pt reassessed - now with improvement in pain. Pt is well appearing. vitals are normal. No complaints at this time. Clinically stable for DC home. *DC/Admit/Observation/Transfer Diagnosis at time of Disposition: Back pain - Discharge Dispostion Disposition: HOME - Referrals - Patient Instructions - Post Discharge Activity
[2017-04-06 08:50] VITALS: BP 137/82; PULSE 61; TEMP 98
--- NOTE | 2017-04-06 13:08 | EKG ---
Test Reason : Blood Pressure : / mmHG Vent. Rate : 070 BPM Atrial Rate : 070 BPM P-R Int : 136 ms QRS Dur : 078 ms QT Int : 398 ms P-R-T Axes : 035 051 029 degrees QTc Int : 429 ms NORMAL SINUS RHYTHM NORMAL ECG WHEN COMPARED WITH ECG OF 10-JUL-2016 12:11, NO SIGNIFICANT CHANGE WAS FOUND Confirmed by MD Yarbrough Daniel ([id number]) on 04/06/2017 1:08:12 PM Referred By: Confirmed By:Lucian Yarbrough MD
== END | disposition home or self-care (01) ==
LOC: JER 22:25 → UNDOADMOB 04-06 01:57 → JERBED 04-06 01:57
PROC: 3E033NZ Introduction of Analgesics, Hypnotics, Sedatives into Peripheral Vein, Percutaneous Approach (ICD-10-PCS; principal; 2017-04-05)
DX: M62.830 Muscle spasm of back (principal); I10 Essential (primary) hypertension; E78.00 Pure hypercholesterolemia, unspecified; F41.8 Other specified anxiety disorders; G47.30 Sleep apnea, unspecified
CPT/HCPCS: 36415; 71275-TC; 80053; 84484; 84702; 84703; 85025; 85379; 93005; 93010; 99283-25

== ENCOUNTER 2019-10-08 08:04 | Emergency (ER) | payer OTHER ==
[2019-10-08 08:20] VITALS: BP 143/78; PULSE 72; TEMP 99; BMI 42.3
[2019-10-08] MEDS ORDERED: FAMOTIDINE 20 MG/50 ML IVPB 20 MG/50 ML MG IVPB ONE ×2 (08:41→08:46)
[2019-10-08] MEDS ORDERED: diphenhydrAMINE HCL 50 MG CAPSULE PO ONE (09:31)
[2019-10-08] MEDS ORDERED: predniSONE 20 MG TABLET (UD) PO ONE (09:31)
[2019-10-08] MEDS ORDERED: FAMOTIDINE 20 MG TABLET PO ONE (09:31)
[2019-10-08] MEDS ORDERED: diphenhydrAMINE HCL 25 MG CAPSULE (FP) PO ONE (09:36)
[2019-10-08] MEDS ORDERED: FAMOTIDINE 20 MG TABLET ONE (09:37)
--- NOTE | 2019-10-08 09:37 | PDOC ---
Documentation entered by Tayler Montes De Oca SCRIBE, acting as scribe for Romulo De Oliveira MD. Romulo De Oliveira MD: This documentation has been prepared by the Tavon tesfaye Maria, SCRIBE, under my direction and personally reviewed by me in its entirety. I confirm that the documentation accurately reflects all work, treatment, procedures, and medical decision making performed by me. Attending Attestation - Resident Resident Name: JohanneFlorecitaramila - ED Attending Attestation I have performed the following: I have examined & evaluated the patient, The case was reviewed & discussed with the resident, I agree w/resident's findings & plan, Exceptions are as noted - HPI HPI: 10/08/19 09:13 The patient is a 53 year old female with a significant past medical history of DVT, HTN, HLD and psychiatric disorder who presents to the emergency department with swollen lips. As per patient, she woke up yesteday morning with swollen lips, notes no swelling in her tongue, voice changes, difficult breathng, difficulty swallowing. Denies rash, erythema, or itchiness. Patient states this has never happened to her before and has no family history of it. She denies any new medications or foods. Patient notes the swelling is abou the same (no worse or better) when compared to waking up yesterday. she has no taken any medications for it. - Physicial Exam PE: 10/08/19 09:32 GENERAL: The patient is awake, alert, and fully oriented, Nontoxic - in no acute distress. HEAD: Normocephalic, atraumatic. EYES: extraocular movements intact, sclera anicteric, conjunctiva clear. ENT: Normal voice, Moist mucous membranes. swollen upper/lower lips, no stridor, uvula symmetric, no posterior pharyngeal swelling NECK: Normal range of motion, supple LUNGS: Breath sounds equal, clear to auscultation bilaterally. No wheezes, no rhonchi, no rales. HEART: Regular rate and rhythm, normal S1 and S2 without murmur, rub or gallop. ABDOMEN: Soft, nontender, No guarding, no rebound. No CVA tenderness. NEUROLOGICAL: No facial assymetry, Normal speech, PSYCH: Normal mood, normal affect. SKIN: Warm, Dry, normal turgor, - Medical Decision Making 10/08/19 09:36 stable angioedema of the lips no tongue/posterior pharygneal involvement will give prednisone/benadryl/pepcid will refer to child watch attendant Discharge - Discharge Information Problems reviewed: Yes Clinical Impression/Diagnosis: Angioedema Qualifiers: Encounter type: initial encounter Qualified Code(s): T78.3XXA - Angioneurotic edema, initial encounter Condition: Stable Disposition: HOME - Additional Discharge Information Prescriptions: predniSONE [Deltasone -] 40 mg PO DAILY 4 Days #4 tablet - Follow up/Referral Referrals: Annie Salazar MD [Non Staff, Medical] - Gela Vogel MD [Staff Physician] - Shayla Abbasi MD [Non Staff, Medical] - Kris Day MD [Primary Care Provider] - Jeannie Sheridan MD [Staff Physician] - Alan Samuel MD [Non Staff, Medical] - Mayte Mccauley [Non Staff, Medical] - - Patient Discharge Instructions Patient Printed Discharge Instructions: DI for Angioedema Additional Instructions: Please follow-up with your primary doctor(s) within 2-3 days. Please avoid any known triggers of your allergies. We recommend you see an Container Filler - we have given you a list of allergists (check with your insurance before making any appointments). You were given a copy of the results from any tests performed today in the Emergency Department which have results available. Show these to your doctor(s). RETURN TO THE ER: if you have shortness of breath, chest pain or difficulty breathing. - Post Discharge Activity
[2019-10-08] MEDS ORDERED: predniSONE 20 MG TABLET (UD) ONE (10:06)
--- NOTE | 2019-10-08 10:06 | PDOC ---
History of Present Illness - General Chief Complaint: Allergic Reaction Stated Complaint: SWOLLING LIPS Time Seen by Provider: 10/08/19 08:24 - History of Present Illness Initial Comments: 10/08/19 10:01 HPI: 53 y/o F hx of depression (on multiple anti-depressants), HTN presents to the ED with swollen lips over the last few hours. pt reports no hx of known allergies to foods/medications. She woke up this morning with swollen lips. pt has not had any associated tongue swelling, wheezing or sensation of throat closure, hives or rashes. pt reports this as first time incident. Patient denies STEPHENS, vision change, palpitations, cough, wheezing, orthopena, PND, leg swelling/pain, nausea, vomiting, fevers chills, chest pian, SOB, urinary complaints, hematuria, BPR, abdominal pain, diarrhea, constipation, lightheadedness, weakness, sensory changes. PMHx: as noted above ROS: as noted SHx: Denies Etoh, IVDA, tobacco use Allergies: NKDA ROS: GENERAL/CONSTITUTIONAL: No fever or chills. No weakness. HEAD, EYES, EARS, NOSE AND THROAT: No change in vision. No ear pain or discharge. No sore throat. CARDIOVASCULAR: No chest pain or shortness of breath RESPIRATORY: No cough, wheezing, or hemoptysis. GASTROINTESTINAL: No nausea, vomiting, diarrhea or constipation. GENITOURINARY: No dysuria, frequency, or change in urination. MUSCULOSKELETAL: No joint or muscle swelling or pain. No neck or back pain. SKIN: No rash NEUROLOGIC: No headache, vertigo, loss of consciousness, or change in strength/sensation. ENDOCRINE: No increased thirst. No abnormal weight change HEMATOLOGIC/LYMPHATIC: No anemia, easy bleeding, or history of blood clots. ALLERGIC/IMMUNOLOGIC: No hives or skin allergy. PE: GENERAL: Awake, alert, and fully oriented, in no acute distress HEAD: No signs of trauma, normocephalic, atraumatic EYES: PERRLA, EOMI, sclera anicteric, conjunctiva clear ENT: Auricles normal inspection, hearing grossly normal, nares patent, oropharynx clear without exudates. Moist mucosa NECK: Normal ROM, supple, no lymphadenopathy, JVD, or masses LUNGS: No distress, speaks full sentences, clear to auscultation bilaterally, no wheezing HEART: Regular rate and rhythm, normal S1 and S2, no murmurs, rubs or gallops, peripheral pulses normal and equal bilaterally. ABDOMEN: Soft, nontender, normoactive bowel sounds. No guarding, no rebound. No masses EXTREMITIES : Normal inspection, Normal range of motion, no edema. No clubbing or cyanosis NEUROLOGICAL: Cranial nerves II through XII grossly intact. Normal speech, normal gait, no focal sensorimotor deficits SKIN: Warm, Dry, normal turgor, no rashes or lesions noted 10/08/19 18:40 Past History - Medical History Allergies/Adverse Reactions: Allergies Allergy/AdvReac Type Severity Reaction Status Date / Time No Known Allergies Allergy Verified 10/08/19 08:15 Home Medications: Ambulatory Orders Chlorzoxazone 500 mg PO BID 09/06/16 Duloxetine HCl [Cymbalta] 20 mg PO DAILY 09/06/16 Omeprazole 40 mg PO DAILY 09/06/16 Simvastatin 20 mg PO HS 09/06/16 Topiramate [Topamax] 100 mg PO BID 09/06/16 Venlafaxine HCl ER [Effexor Xr -] 75 mg PO DAILY 09/06/16 Cyclobenzaprine HCl 7.5 mg PO HS PRN #5 tablet 01/14/17 predniSONE [Deltasone -] 40 mg PO DAILY 4 Days #4 tablet 10/08/19 Anemia: No Asthma: No Cancer: No Cardiac Disorders: No CVA: No COPD: No CHF: No (irregular hr) DVT: Yes Dementia: No Diabetes: No GI Disorders: No Disorders: No (H/O Inc) HTN: Yes (no meds) Hypercholesterolemia: Yes Liver Disease: Yes (fatty liver) Psychiatric Problems: Yes (depression, anxiety) Seizures: No Thyroid Disease: No Lung CA: (sleep apnea) - Surgical History Abdominal Surgery: Yes Appendectomy: No Cardiac Surgery: No Cholecystectomy: Yes Lung Surgery: No Neurologic Surgery: No Orthopedic Surgery: Yes (left carpal tunnel) - Immunization History TDAP Vaccination: No Immunization Up to Date: Yes - Psycho-Social/Smoking History Smoking Status: Yes Smoking History: Current some day smoker Have you smoked in the past 12 months: Yes Number of Cigarettes Smoked Daily: 10 If you are a former smoker, when did you quit?: y Information on smoking cessation initiated: Yes 'Breaking Loose' booklet given: 01/14/17 - Substance Abuse Hx (Audit-C & DAST Scrn) How often the patient has a drink containing alcohol: Never Score: In Men: 4 or > Positive; In Women: 3 or > Positive: 0 Screen Result (Pos requires Nsg. Audit-10AR): Negative In the last yr the pt used illegal drug/Rx for NonMed reason: No Score: Yes response is considered Positive: 0 Screen Result (Positive result requires Nsg. DAST-10): Negative *Physical Exam - Vital Signs Last Vital Signs Temp Pulse Resp BP Pulse Ox 99 F 72 18 143/78 99 10/08/19 08:17 10/08/19 08:17 10/08/19 08:17 10/08/19 08:17 10/08/19 08:17 ED Treatment Course - Medications Given in the ED: ED Medications Discontinued Medications Generic Name Dose Route Start Last Admin Trade Name Freq PRN Reason Stop Dose Admin Diphenhydramine HCl 50 mg 10/08/19 08:41 10/08/19 09:52 Benadryl Injection - IVPUSH 10/08/19 08:42 Not Given ONCE ONE Diphenhydramine HCl 50 mg 10/08/19 09:31 10/08/19 09:51 Benadryl - PO 10/08/19 09:32 50 mg ONCE ONE Administration Famotidine 20 mg 10/08/19 09:31 10/08/19 09:52 Pepcid - PO 10/08/19 09:32 20 mg ONCE ONE Administration Famotidine/Sodium Chloride 20 mg in 50 mls @ 100 mls/hr 10/08/19 08:41 10/08/19 09:51 Pepcid 20 Mg Premixed Ivpb - IVPB 10/08/19 09:10 Not Given ONCE ONE Medical Decision Making - Medical Decision Making 10/08/19 10:04 53 y/o F hx of depression (on multiple anti-depressants), HTN presents to the Ed with swollen lips over the lat few hours. pt reports no hx of known allergies to foods/medications. slow onset of symtpoms more likely due to non allergic angioedema -no associated, hives, urticaria or rash, -focal distribution -no erythema meds: benadryl, pepcid, prednisone. -swelling midly improved, pt in no acute distress, d/c with prednisone and follow up with allergy/immunology and return precautions Discharge - Discharge Information Problems reviewed: Yes Clinical Impression/Diagnosis: Angioedema Qualifiers: Encounter type: initial encounter Qualified Code(s): T78.3XXA - Angioneurotic edema, initial encounter Condition: Stable Disposition: HOME - Additional Discharge Information Prescriptions: predniSONE [Deltasone -] 40 mg PO DAILY 4 Days #4 tablet - Follow up/Referral Referrals: Kris Day MD [Primary Care Provider] - Annie Salazar MD [Non Staff, Medical] - Gela Vogel MD [Staff Physician] - Mayte Mccauley [Non Staff, Medical] - Shayla Abbasi MD [Non Staff, Medical] - Jeannie Sheridan MD [Staff Physician] - Alan Samuel MD [Non Staff, Medical] - - Patient Discharge Instructions Patient Printed Discharge Instructions: DI for Angioedema Additional Instructions: Please follow-up with your primary doctor(s) within 2-3 days. Please avoid any known triggers of your allergies. We recommend you see an Laserist - we have given you a list of allergists (check with your insurance before making any bhupinder ointments). You were given a copy of the results from any tests performed today in the Emergency Department which have results available. Show these to your doctor(s). RETURN TO THE ER: if you have shortness of breath, chest pain or difficulty breathing. - Post Discharge Activity
== END 2019-10-08 10:45 | disposition home or self-care (01) ==
LOC: JER 08:04
PROC: 3E033NZ Introduction of Analgesics, Hypnotics, Sedatives into Peripheral Vein, Percutaneous Approach (ICD-10-PCS; principal; 2019-10-08)
PROC: 3E033GC Introduction of Other Therapeutic Substance into Peripheral Vein, Percutaneous Approach (ICD-10-PCS; 2019-10-08)
DX: T78.3XXA Angioneurotic edema, initial encounter (principal)
CPT/HCPCS: 96365; 96375; 99284-25

== ENCOUNTER 2021-02-23 16:46 | Emergency (ER) | payer OTHER ==
[2021-02-23 16:52] VITALS: BP 135/72; PULSE 65; TEMP 97; BMI 42.3
== END 2021-02-23 19:05 | disposition home or self-care (01) ==
LOC: JER 16:46
DX: K64.9 Unspecified hemorrhoids (principal)
CPT/HCPCS: 99283-25

== ENCOUNTER 2023-08-17 22:49 | Emergency (ER) | payer OTHER ==
[2023-08-17 22:53] VITALS: PULSE 58; TEMP 98.5; BMI 42.3
[2023-08-17] MEDS ORDERED: ONDANSETRON 4 MG/2 ML VIAL ONE (23:36)
[2023-08-17] MEDS ORDERED: MECLIZINE HCL 25 MG TABLET (FP) ONE (23:36)
[2023-08-17] MEDS: MECLIZINE HCL 25 MG TABLET (FP) PO ONE (23:47)
[2023-08-17] MEDS: ONDANSETRON 4 MG/2 ML VIAL IVPB ONE (23:47)
[2023-08-17] MEDS: SODIUM CHLORIDE 0.9% 500 ML INFUS.BAG IV ONE (23:47)
[2023-08-17 23:53] LABS: BASO % 0.9 % (0-2.0); EOS % 1.6 % (0-4.5); HEMATOCRIT 35.6 % (32.4-45.2); LYMPH % 37.6 % (8-40); MCH 28.1 pg (25.7-33.7); MCHC 33.8 g/dl (32.0-36.0); MEAN CELL VOLUME 83.2 fl (80-96); MEAN PLT VOLUME 8.1 fl (7.5-11.1); MONO % 5.6 % (3.8-10.2); NEUT % 54.3 % (42.8-82.8); PLATELET COUNT 248 10^3/uL (134-434); RBC 4.27 M/mm3 (3.60-5.2); RDW 15.7 % (11.6-15.6); WHITE BLOOD COUNT 7.4 K/mm3 (4.0-10.0)
[2023-08-18 00:21] LABS: ALBUMIN 3.6 g/dl (3.4-5.0)
[2023-08-18 00:22] LABS: BLOOD UREA NITROGEN 12.9 mg/dL (7-18)
[2023-08-18 00:25] LABS: CREATININE 0.9 mg/dL (0.55-1.3)
[2023-08-18 00:26] LABS: BILIRUBIN,TOTAL 0.2 mg/dL (0.2-1); TOT PROT 6.7 g/dl (6.4-8.2)
[2023-08-18 01:08] LABS: POTASSIUM 3.7 mmol/L (3.5-5.1)
[2023-08-18 01:11] LABS: URINE APPEARANCE CLEAR; URINE BILIRUBIN NEGATIVE (NEGATIVE); URINE COLOR YELLOW; URINE GLUCOSE (UA) 3+ (NEGATIVE); URINE KETONE NEGATIVE (NEGATIVE); URINE LEUK ESTERASE NEGATIVE (NEGATIVE); URINE NITRITE NEGATIVE (NEGATIVE); URINE PROTEIN NEGATIVE (NEGATIVE); URINE UROBILINOGEN 0.2 mg/dL (0.2-1.0)
[2023-08-18 02:55] VITALS: BP 149/81; RESP 16
[2023-08-18] MEDS ORDERED: MECLIZINE HCL 25 MG TABLET (FP) ONE (04:11)
[2023-08-18] MEDS: MECLIZINE HCL 25 MG TABLET (FP) PO ONE (04:14)
== END 2023-08-18 05:15 | disposition home or self-care (01) ==
LOC: JER 22:49
PROC: 3E033GC Introduction of Other Therapeutic Substance into Peripheral Vein, Percutaneous Approach (ICD-10-PCS; principal; 2023-08-17)
DX: R42 Dizziness and giddiness (principal); R51.9 Headache, unspecified
CPT/HCPCS: 36415; 70450-TC; 70496-TC; 70498-TC; 80053; 81003; 83735; 84484; 85025; 87086; 93005; 93010; 99285-25; Q9967

== ENCOUNTER 2023-11-08 17:22 | Emergency (ER) | payer OTHER ==
[2023-11-08 17:36] VITALS: BP 153/90; PULSE 60; RESP 18; TEMP 98.3; BMI 43.8
[2023-11-08] MEDS ORDERED: ACETAMINOPHEN 500 MG TABLET (FP) ONE (18:17)
[2023-11-08] MEDS: ACETAMINOPHEN 500 MG TABLET (FP) PO ONE (18:20)
== END 2023-11-08 20:37 | disposition home or self-care (01) ==
LOC: JERFT 17:22
DX: M25.572 Pain in left ankle and joints of left foot (principal); M71.22 Synovial cyst of popliteal space [Baker], left knee
CPT/HCPCS: 93971-TC; 99284-25